=== PATIENT | female | born 1950 ===

== ENCOUNTER 2017-02-19 15:39 | Emergency (ER) | payer MEDICARE ==
[2017-02-19 17:05] VITALS: BP 138/59
[2017-02-19] MEDS ORDERED: Ketorolac INJ* 60 MG/2 ML VIAL IM ONE (17:22)
--- NOTE | 2017-03-02 09:07 | UC ---
Back Pain HPI - HPI Summary HPI Summary: Right Sciatic pain, has seen her chiropractor and suggest she comes to urgnt care for steroid injection - History of Current Complaint Chief Complaint: UCLowerExtremity Stated Complaint: RIGHT HIP PAIN Time Seen by Provider: 02/19/17 17:15 Hx Obtained From: Patient ?: No Onset/Duration: Gradual Onset, Lasting Weeks Timing: Constant Severity Initially: Moderate Severity Currently: Moderate Pain Intensity: 7 Pain Scale Used: 0-10 Numeric Back Pain: Is Discrete @ - right SI Joint Aggravating Factor(s): Movement, Lifting Alleviating Factor(s): Rest, Position, Heat Associated Signs And Symptoms: Positive: Negative - Allergies/Home Medications Allergies/Adverse Reactions: Allergies Allergy/AdvReac Type Severity Reaction Status Date / Time Sulfamethoxazole Allergy Severe See Comment Verified 02/19/17 17:05 w/Trimethoprim [From ] Metformin Allergy Hives Verified 02/19/17 17:05 [facility] Allergy Unknown Uncoded 02/19/17 17:05 Reaction Details Home Medications: Home Medications Pioglitazone TAB* [Actos TAB*] 30 mg PO DAILY 02/19/17 [History Confirmed ] busPIRone TAB* [Buspar TAB*] 10 mg TID 02/19/17 [History Confirmed 02/19/17] PMH/Surg Hx/FS Hx/Imm Hx Previously Healthy: No Endocrine History: Diabetes, Dyslipidemia Cardiovascular History: Hypertension Psychological History: Anxiety, Depression - Surgical History Surgical History: Yes Surgery Procedure, Year, and Place: BENIGN TUMOR RIGHT BREAST, 1981 [place]. BACK SURGERY-1997, 1998 [facility] REMOVAL BACK. SURGERY FOR PUNCTURED SPINE FROM SCAR TISSUE/BONE SPUR. BROKEN SPINE- UNKNOWN CAUSE 2006. LEFT FOOT BROKEN- 2010 [place]. RIGHT KNEE REPLACEMENT- 2004. HYSTERECTOMY- 30 YEARS AGO IN [place]. - Family History Known Family History: Positive: None - Social History Occupation: Retired Lives: With Family Alcohol Use: None Substance Use Type: None Smoking Status (MU): Former Smoker Amount Used/How Often: 1PPD When Did the Patient Quit Smoking/Using Tobacco: QUIT ABOUT 9 YEARS AGO - Immunization History Most Recent Influenza Vaccination: 8847-9445 Most Recent Tetanus Shot: 2006 Most Recent Pneumonia Vaccination: NONE Review of Systems Constitutional: Negative Skin: Negative Eyes: Negative ENT: Negative Respiratory: Negative Cardiovascular: Negative Gastrointestinal: Negative Genitourinary: Negative Motor: Negative Neurovascular: Negative Musculoskeletal: Arthralgia - right SI joint Neurological: Negative Psychological: Negative Is Patient Immunocompromised?: No All Other Systems Reviewed And Are Negative: Yes Physical Exam Triage Information Reviewed: Yes Appearance: Well-Appearing, Pain Distress, Obese Vital Signs: Initial Vital Signs Temp 96.7 F 02/19/17 16:57 Pulse 102 02/19/17 16:57 Resp 18 02/19/17 16:57 BP 138/59 02/19/17 16:57 Pulse Ox 100 02/19/17 16:57 Vital Signs Reviewed: Yes Eye Exam: Normal Eyes: Positive: Conjunctiva Clear ENT Exam: Normal ENT: Positive: Normal ENT inspection, Hearing grossly normal, Pharynx normal, TMs normal. Negative: Nasal congestion, Nasal drainage, Tonsillar swelling, Tonsillar exudate, Trismus, Muffled voice, Hoarse voice, Dental tenderness, Sinus tenderness Dental Exam: Normal Neck exam: Normal Neck: Positive: Supple, Nontender, No Lymphadenopathy Respiratory Exam: Normal Respiratory: Positive: Chest non-tender, No respiratory distress, No accessory muscle use Cardiovascular Exam: Normal Cardiovascular: Positive: RRR, Pulses Normal, Brisk Capillary Refill Musculoskeletal Exam: Normal Neurological Exam: Normal Neurological: Positive: Alert, Muscle Tone Normal, Fatigued Psychological Exam: Normal Psychological: Positive: Normal Response To Family, Age Appropriate Behavior Skin Exam: Normal Re-Evaluation - Re-Evaluation First Eval Change: Improved - Some relief with Toradol injection Back Pain Course/Dx - Course Course Of Treatment: Medrol Dose PAck refer to Doctor Ross for further care and evaluation pain - Differential Dx/Diagnosis Provider Diagnoses: Right Sciatic Pain Discharge - Discharge Plan Condition: Stable Disposition: HOME Prescriptions: Methylprednisolone [Medrol Dosepak 4 MG*] 4 mg PO .SEE MARGOT INSTRUCTION #1 margot Patient Education Materials: Sciatica (ED) Referrals: Davin Ross MD [Medical Doctor] - As Soon As Possible
== END 2017-02-19 18:15 | disposition home or self-care (01) ==
LOC: UCCORT 15:39
DX: M54.31 Sciatica, right side (principal); E11.9 Type 2 diabetes mellitus without complications; Z79.84 Long term (current) use of oral hypoglycemic drugs; E78.5 Hyperlipidemia, unspecified; I10 Essential (primary) hypertension; F41.9 Anxiety disorder, unspecified; F32.9 Major depressive disorder, single episode, unspecified; E66.9 Obesity, unspecified; Z96.651 Presence of right artificial knee joint; Z90.710 Acquired absence of both cervix and uterus; Z88.2 Allergy status to sulfonamides; Z88.8 Allergy status to other drugs, medicaments and biological substances; Z87.891 Personal history of nicotine dependence
CPT/HCPCS: 81003; 87086; 96372; 99212; G0463; J1885

== ENCOUNTER 2018-09-02 19:03 | Emergency (ER) | payer SELFPAY ==
[2018-09-02 19:28] VITALS: BP 136/56
--- NOTE | 2018-09-02 19:53 | UC ---
General HPI - HPI Summary HPI Summary: per triage, fell 09/01/18 in store parking lot, caught foot on big cement block, fell forward onto right side but reached out with left wrist to protect her -c/o left wrist pain pt c/o bruising, pain and swelling to L thumb into palm and wrist at base of thumb. she notes limited movement to thumb like something blocking it. - History of Current Complaint Chief Complaint: UCUpperExtremity Stated Complaint: S/P FALL LEFT THUMB/HAND PAIN Time Seen by Provider: 09/02/18 19:44 Hx Obtained From: Patient Hx Last Menstrual Period: N/A Onset/Duration: Sudden Onset Timing: Constant Pain Intensity: 8 - Allergy/Home Medications Allergies/Adverse Reactions: Allergies Allergy/AdvReac Type Severity Reaction Status Date / Time metformin Allergy Intermediate Hives Verified 09/02/18 19:30 sulfamethoxazole Allergy Intermediate itchy Verified 09/02/18 19:30 [facility] [employer] [facility] Allergy Unknown Uncoded 09/02/18 19:30 Reaction Details PMH/Surg Hx/FS Hx/Imm Hx Endocrine History: Diabetes, Dyslipidemia Cardiovascular History: Hypertension - Surgical History Surgical History: Yes Surgery Procedure, Year, and Place: BENIGN TUMOR RIGHT BREAST, 1980 [place]. BACK SURGERY-1997, 1998 [facility] REMOVAL BACK. SURGERY FOR PUNCTURED SPINE FROM SCAR TISSUE/BONE SPUR. BROKEN SPINE- UNKNOWN CAUSE 2006. LEFT FOOT BROKEN- 2010 [place]. RIGHT KNEE REPLACEMENT- 2004. HYSTERECTOMY- 30 YEARS AGO IN [place]. - Family History Known Family History: Positive: Non-Contributory - Social History Alcohol Use: None Substance Use Type: None Smoking Status (MU): Former Smoker Amount Used/How Often: 1PPD When Did the Patient Quit Smoking/Using Tobacco: QUIT ABOUT 9 YEARS AGO - Immunization History Most Recent Influenza Vaccination: [id number] Most Recent Tetanus Shot: 2006 Most Recent Pneumonia Vaccination: NONE Review of Systems All Other Systems Reviewed And Are Negative: No Constitutional: Negative: Fever Skin: Positive: Bruising - L thumb, hand, wrist. Negative: Rash Musculoskeletal: Positive: Decreased ROM - L thumb, Edema - L thumb, hand, wrist Neurological: Negative: Numbness Physical Exam Triage Information Reviewed: Yes Appearance: Well-Appearing Vital Signs: Initial Vital Signs Temp 96.6 F 09/02/18 19:22 Pulse 88 09/02/18 19:22 Resp 17 07/17/19 19:22 BP 136/56 09/02/18 19:22 Pulse Ox 99 09/02/18 19:22 Vital Signs Reviewed: Yes Respiratory: Positive: No respiratory distress Cardiovascular: Positive: RRR Musculoskeletal: Positive: Other: - LUE: shoulder elbow and forearm without deformity or tenderness. Radial side of wrist is bruised, swollen and tender including snuff box. Thumb and thenar eminence is bruised, swollen and tender. Thumb has limited flexion due to pain but s/v intact. Rest of hand is non tender. gross s/v/m intact to rest of hand. Neurological: Positive: Alert Psychological: Positive: Age Appropriate Behavior Skin Exam: Normal Diagnostics - Radiology No standard instances Radiology Interpretation Completed By: ED Physician - wrist=no fx. hand non displaced fx prox phalanx thumb Course/Dx - Diagnoses Provider Diagnosis: Thumb fracture, Left wrist sprain Discharge - Sign-Out/Discharge Documenting (check all that apply): Patient Departure All imaging exams completed and their final reports reviewed: No - Discharge Plan Condition: Stable Disposition: HOME Patient Education Materials: Thumb Fracture (ED), Wrist Sprain (ED) Referrals: Dutch Borrego MD [Medical Doctor] - As Soon As Possible Additional Instructions: WEAR SPLINT AT ALL TIMES. - Billing Disposition and Condition Condition: STABLE Disposition: Home
--- NOTE | 2018-09-03 08:25 | ED ---
Progress - Progress Note Progress Note: final xray read reviewed and it confirms the proximal phalynx thumb fx. Course/Dx - Diagnoses Provider Diagnoses: Thumb fracture, Left wrist sprain Discharge - Sign-Out/Discharge Documenting (check all that apply): Patient Departure All imaging exams completed and their final reports reviewed: Yes - Discharge Plan Condition: Stable Disposition: HOME Patient Education Materials: Thumb Fracture (ED), Wrist Sprain (ED) Referrals: Dutch Borrego MD [Medical Doctor] - As Soon As Possible Additional Instructions: WEAR SPLINT AT ALL TIMES. - Billing Disposition and Condition Condition: STABLE Disposition: Home
== END 2018-09-02 20:16 | disposition home or self-care (01) ==
LOC: UCCORT 19:03
DX: S63.502A Unspecified sprain of left wrist, initial encounter (principal); S62.512A Displaced fracture of proximal phalanx of left thumb, initial encounter for closed fracture; W01.0XXA Fall on same level from slipping, tripping and stumbling without subsequent striking against object, initial encounter; Y92.481 Parking lot as the place of occurrence of the external cause; E11.9 Type 2 diabetes mellitus without complications; I10 Essential (primary) hypertension; Z88.8 Allergy status to other drugs, medicaments and biological substances; Z87.891 Personal history of nicotine dependence
CPT/HCPCS: 99212; G0463